=== PATIENT | female | born 1970 | race Caucasian/White ===

== ENCOUNTER 2018-09-20 06:15 | Inpatient (IN) ==
[~2018-09-20 06:15] MED LIST: Bacitracin 50,000 UNIT, Polymyxin B Sulfate 500,000 UNIT, Sodium Chloride IRRigation 1,... IR ONE
[2018-09-20] MEDS ORDERED: Clindamycin 900 MG/50 ML 900 MG/50 ML IV.SOLN IVPB ONE (06:31)
[2018-09-20] MEDS ORDERED: Albuterol 2.5 MG/3 ML NEBULIZER IH ONE (06:31)
[2018-09-20] MEDS ORDERED: Ringers Solution, Lactated 1,000 ML IVC SCH ×2 (06:45→07:15)
--- NOTE | 2018-09-20 06:46 | Anesthesia Evaluation PreOp ---
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 (PTSD, anxiety,) Other Medical History: Hepatic (hx liver disease unspecified), GERD, Other (fibromyalgia, hx hypo-K and hypo-Mg) Anesthesia History: No Prior Anesthetic Complications, Past Anesthesia (tonsils, tubal, appy, liver bx) Alcohol Use: rarely Drug use: none Medications and Allergies Ibuprofen [Motrin] 800 mg PO Q8HR #30 tablet 05/05/16 [Rx] Meloxicam [Mobic] 7.5 mg PO Q12H 08/08/18 [History] Multivitamin [Daily Multiple Vitamin] 1 each PO DAILY 08/08/18 [History] Allergy/AdvReac Type Severity Reaction Status Date / Time acetaminophen [From Vicodin] Allergy Nausea Verified 08/08/18 21:39 cephalexin [From Keflex] Allergy Swelling Verified 08/08/18 21:39 of Lip/Tongue/Throat codeine Allergy Nausea Verified 08/08/18 21:39 hydrocodone [From Vicodin] Allergy Nausea Verified 08/08/18 21:39 - Meds/Allergy Pre-op Review Medications Reviewed: Yes Allergies Reviewed: Yes Beta Blockers on Current Med List: No Anesthesia Results - Labs Selected Entries 09/20/18 06:34 Temperature 98.4 F Pulse Rate 70 Respiratory Rate 18 Blood Pressure 137/87 O2 Sat by Pulse Oximetry 96 Laboratory Tests 09/18/18 09/18/18 09:30 09:30 Hgb 13.6 Hct 41.7 Plt Count 148 Sodium 137 Potassium 3.2 L BUN 10 Creatinine 0.39 L - Imaging EKG: report reviewed (NS[facility]) Anesthesia Exam Selected Entries 09/20/18 06:34 Temperature 98.4 F Pulse Rate 70 Respiratory Rate 18 Blood Pressure 137/87 O2 Sat by Pulse Oximetry 96 Weight: 41kg BMI 18 NPO (# of Hours): 8 - HEENT Pupil (Motor): EOMI Mallampati: II Teeth: Normal Oral Opening: Greater than 3 - SNACK [employer] MIXER OPERATOR LOC: Oriented [employer]NACK [employer] MIXER OPERATOR Motor: Normal RUE, Normal LUE, Normal RLE, Normal LLE, Normal Face [employer] MIXER OPERATOR Sensory: Normal: RUE, LUE, RLE, LLE, Face - Cardiac Rhythm: Regular Murmur: None - Pulmonary Breath Sounds: bilateral Clear Respiratory Effort: Symmetrical Anesthesia Assess/Plan ASA Score: 2 Level of consciousness: Cooperative, Oriented Anesthetic Plan: General Monitoring Plan: Standard Monitors Recovery Plan: PACU (agrees to GA)
[2018-09-20] MEDS ORDERED: Gabapentin 100 MG CAPSULE PO ONE (06:58)
[2018-09-20] MEDS ORDERED: *HR* OxyCODONE ER (12 HR) 10 MG TABLET PO ONE (06:59)
[2018-09-20] MEDS ORDERED: *HR* OxyCODONE/APAP 5/325 TABLET PO PRN (07:02)
[2018-09-20] MEDS ORDERED: *HR* FentaNYL (PF) 100 MCG/2 ML VIAL ONE ×2 (07:19→11:02)
[2018-09-20] MEDS ORDERED: *HR* Rocuronium Bromide 50 MG/5 ML VIAL ONE (07:19)
[2018-09-20] MEDS ORDERED: Lidocaine -MPF 2% 2 ML VIAL ONE (07:19)
[2018-09-20] MEDS ORDERED: *HR* Midazolam HCl 2 MG/2 ML VIAL ONE (07:19)
[2018-09-20] MEDS ORDERED: Lidocaine -MPF 4% 5 ML AMPUL ONE (07:19)
[2018-09-20] MEDS ORDERED: *HR* Propofol 200 MG/20 ML VIAL IVP ONE (07:21)
[2018-09-20] MEDS ORDERED: *HR* Remifentanil 1 MG VIAL IVP ONE (07:39)
--- NOTE | 2018-09-20 08:02 | History & Physical Report ---
Date of Encounter: 09/20/18 Time of Encounter: 08:02 24 Hour HP Update - Instructions Instructions: If the History and Physical is less than 30 days old and was completed prior to A.M. admission and or procedure and has NOT been updated on calendar day of procedure please complete this update prior to performing procedure. - Update Patient reports changes in Medical Condition: No Changes in examination, assessment, or condition: No Changes in Medication: No Preop tests/diagnostics Reviewed: Yes Pre-Op MRSA Screen: Negative Surgery Remains Indicated: Yes Consent for Planned Operative Procedure(s) Verified: Yes - Pre-Operative Checklist Preoperative Checklist Indicated: No Prophylactic Antibiotic Ordered: Yes Home Medications Include Beta Esha: No Beta Esha Taken Today (Day of Surgery): No Beta Esha Taken Yesterday (Day Prior to Surgery): No Is VTE Prophylaxis Indicated?: Yes
[2018-09-20] MEDS ORDERED: *HR* PHENYLEPHRINE 1,000 MCG/10 ML SYRINGE IVP ONE (08:25)
--- NOTE | 2018-09-20 08:29 | Discharge Summary ---
Outpatient Proc Discharge Plan - Plan Additional Instructions: INCORRECT DOCUMENT FOR THIS PATIENT - SCRIPTS SHREDDED - ENTERED IN ERROR AFTER SURGERY General Expectations: Swelling and discomfort in the shoulder for up to a week after surgery is typical A post-operative appointment will be set up with your provider within the 1st week of your surgery. Stitches will be removed within one (1) week of your surgery. You may need help with your daily activities, so it is a good idea to have family and friends prepared to help you. Eat a regular diet. Although some people feel much better right away, many people notice they are not back to normal for 4 weeks or more. The shoulder is stiff and sore for several weeks. Rest after your surgery. You may feel dizzy, lightheaded or sleepy for 12 to 24 hours after your operation. This is perfectly normal. Move slowly, and be especially careful on stairs. On the following day you can do those activities that you feel able to do. Wound Care: Expect minimal bloody drainage on the surgical bandages. Keep bandages clean and dry. You may remove outer bandages after 24 hours. Keep Steri-strips over the incisions. Keep them as dry as possible, and pat dry after showering. If Steri-strips come off, cover incisions with band-aids and do not use antibiotic creams You may shower 24 hours after surgery. Do not scrub the incisions or submerge them under water for at least two weeks. Sling Use: Duration of sling use will vary depending on the procedure and surgery type. You may be in the sling for up to six (6) weeks. Until you see your provider at the follow-up appointment, wear the sling at all times except when changing clothes, showering, Physical Therapy, or if advised by your Physician. Feel free to adjust the sling at home to feel snug but not tight. You should be able to breathe freely. There will also be a strap over your shoulder you may ad just to keep your arm at a 90 degree angle. You do not want your hand hanging down towards the ground. This encourages swelling in the hand. Your sling will be re-adjusted at your first post-operative appointment. Icing is most important in the first 72 hours after surgery: Apply ice bags or use the Cryocuff device you will be given at the time of surgery. Never apply ice directly contact to your skin. You will be given a Cryocuff device at the time of surgery. Please be sure all the pieces are with you or in the package before leaving the hospital. Anesthesia - General and Regional General Anesthesia - It is not uncommon to have generalized aching and muscle soreness for 24 to 48 hours. A sore throat may also occur. Regional Interscalene Nerve Block - Your Anesthesiologist will discuss the utilization of this nerve block with you prior to surgery. This is performed to limit post-operative pain - you should experience little to no pain right after surgery. Nerve blocks can last 12 to 48 hours after the surgery. After the surgery, start to take your pain medication as prescribed, though not more than every four (4) hours, in anticipation of the nerve block wearing off. You may experience the inability to move your shoulder and hand, numbness, and swelling may feel different. If you experience severe or prolonged shortness of breath, please go to the emergency room. Pain Management After surgery: Do not wait until you are in a lot of pain before taking your prescribed pain medication. It takes 30-45 minutes for the medication to take effect. Pain tends to be worse at night, affecting sleep. Lying down may increase discomfort. Try sleeping in a recliner, or propped up with multiple pillows in bed - A pillow placed behind your elbow may help. Narcotic Medication Protocol: Strong oral narcotic pain medications are typically prescribed for the first few days after surgery. Use only as directed. Common side effects include nausea, dizziness, urinary retention, and constipation. If any of these are occurring to an uncomfortable level, decrease the amount of pain medication you are taking or stop taking it entirely. A stool softener may be helpful for constipation while taking pain medications. This is an uvnd-ais-euabynb product, such as Colace or Miralax. If you have an adverse reaction to the pain medication prescribed, please bring in your medicine bottle with you to your 1st appointment. Call our office at if you do not tolerate the medication well. Take your pain medication with food. Do not combine with alcoholic beverages. Do not operate machinery or a vehicle while taking pain medications. Other Medications Do not take Tylenol (Acetaminophen) in combination with pain medications that include these same substances. You may find the contents of the pain medication on the bottle of your prescription. You may take anti-inflammatory medication (Motrin [Ibuprofen], Aleve [Naproxen], Celebrex, Aspirin, etc) in conjunction with your pain medication if you can tolerate these medications. After the surgery, you may resume your normal medications that you took prior to surgery. WHAT YOU CAN EXPECT IN THE FIRST MONTH Physical Therapy - this will be addressed at your first post-operative appointment. The type of procedure you have determines when you will start Physical Therapy and is managed on a [id number] basis. Rotator cuff repairs, shoulder stabilizations, and clavicular procedures: Therapy starts approx. 6 weeks after surgery. Other procedures: Therapy starts immediately after surgery. You should call your insurance company and therapy location ahead of time to learn allotted number of visits, financial expenses, and out of pocket costs. We are happy to provide you with a list of [facility] locations. Driving - this will be addressed at your first post-operative appointment, however, in general: 1. You must be completely off your pain medication. 2. You must be able to perform the necessary functions comfortably and confidently. This may take 1 month or longer. Working - this will be addressed at your first appointment - Restrictions are job related and can vary from 2-10 weeks. No Repair during Surgery Sitting Desk Job - 1-2 Weeks Standing Job - 2-4 Weeks High Demand Job - 6-8 Weeks Repair during Surgery Sitting Desk Job - 2-3 Weeks Standing Job - 3-6 Weeks High Demand Job - 2-4 Months AFTER THE 1ST MONTH AT HOME Because each person heals differently, there are different recovery timelines. An average recovery period typically lasts about three (3) to six (6) months. You should not participate in contact sports or do heavy lifting until released by your physician. *Any questions or concerns regarding your surgery, you may contact our office at . Option #3 *Please allow for 24-48 hours to receive a return phone call* If the case of an emergency, please call 911 or go to the closest Emergency Department Prescriptions: Clindamycin [Cleocin] 150 mg PO Q6HR 2 Days #7 capsule OxyCODONE Immed Rel [Roxicodone 5 MG] 5 mg PO Q6HR PRN 5 Days #20 tablet PRN Reason: Severe Pain Docusate Sodium [Colace] 100 mg PO BID 5 Days #10 capsule Home Medications: Clindamycin [Cleocin] 150 mg PO Q6HR 2 Days #7 capsule 09/20/18 [Rx] Dexamethasone [Decadron] 4 mg PO BID 09/20/18 [History] Docusate Sodium [Colace] 100 mg PO BID 5 Days #10 capsule 09/20/18 [Rx] FLUoxetine HCl [PROzac] 20 mg PO DAILY 09/20/18 [History] Folic Acid 1 mg PO DAILY 09/20/18 [History] Magnesium Oxide [Magnesium] 400 mg PO TID 09/20/18 [History] Meloxicam [Mobic] 7.5 mg PO DAILY 09/20/18 [History] Metoclopramide HCl 5 mg PO HS 09/20/18 [History] Mirtazapine [Remeron] 30 mg PO HS 09/20/18 [History] Omeprazole [PriLOSEC] 20 mg PO DAILY 09/20/18 [History] OxyCODONE Immed Rel [Roxicodone 5 MG] 5 mg PO Q6HR PRN 5 Days #20 tablet 09/20/18 [Rx] Potassium Chloride [K-Tab ER] 20 meq PO TID 09/20/18 [History] Sennosides [Senna] 17.2 mg PO DAILY 09/20/18 [History]
[2018-09-20] MEDS ORDERED: Ondansetron 4 MG/2 ML VIAL ONE (08:44)
[2018-09-20] MEDS ORDERED: Dexamethasone 4 MG/ML VIAL ONE (08:44)
[2018-09-20] MEDS ORDERED: Celecoxib 200 MG CAPSULE PO ONE (09:00)
[2018-09-20] MEDS ORDERED: EPHEDrine 50 MG/ML VIAL ONE (09:09)
[2018-09-20] MEDS ORDERED: Neostigmine Methylsulfate 3 MG/3 ML SYRINGE ONE (09:33)
[2018-09-20] MEDS ORDERED: *HR* HYDROMORPHONE 2 MG/ML VIAL ONE (10:26)
[2018-09-20] MEDS ORDERED: Ketorolac 30 MG/ML VIAL ONE (10:35)
--- NOTE | 2018-09-20 10:55 | Orthopedic Operative Note ---
Date of procedure: 09/20/18 Pre-op diagnosis: Spondylolisthesis, lumbar stenosis, lumbar radiculopathy Post-op diagnosis: same Operation/Findings: Posterior lumbar interbody fusion L4-L5: The patient successfully underwent general endotracheal anesthesia. The patient was given antibiotics prior to the start of the procedure. Compression boots and stockings were used for deep vein thrombosis prophylaxis. A Corbett catheter was placed. Leads for neuro monitoring were placed on the upper and lower extremities. This included the cranium. The neuro monitoring personnel confirmed there were satisfactory readings prior to the start of the procedure. The patient was turned prone on the Berto table. The back was prepped and draped in the usual sterile fashion. An incision was was marked and centered over the involved levels in the mid line. The incision was deepened through the lumbar fascia. Bovie cautery and Alfonso elevators were used to reflect the paraspinal musculature at the lateral extent of the transverse processes of the involved L4 and L5 levels. Addis clamps were placed over the L4 and L5 spinous processes. An intraoperative lateral fluoroscgraph was obtained. A conversation was held between the surgeon and radiologist and both confirmed we had the correct operative levels. We then placed pedicle screws in standard fashion with the aid of fluoroscopy and anatomic landmarks. Briefly a starter awl was used. A gearshift was subsequently used to enter the remote pilot operator hole via a transpedicular route into the vertebral body. The remote pilot operator hole was tapped with an undersized instrument, and subsequently four 6.5 x 40 mm pedicle screws were placed shelton aterally at the indicated L4 and L5 levels. The screws were tested with the aid of the neurologic monitoring staff via pedicle screw stimulation. All reading suggested there was no significant cortical wall breech. The screws were also evaluated fluoro- graphically and appeared to be in satisfactory position. We then turned our attention to the decompression portion of the procedure. We removed the supraspinous and interspinous ligaments and subsequently the insertion of the ligamentum flavum on the undersurface of the proximal L4 lamina was dislodged with a curette. We then removed the ligamentum flavum as well as undercut the facets at this L4-L5 level to decompress the lateral recesses. We also performed a L4 laminectomy. After the decompression, which was over and above that which was required to place the interbody graft, the foramen and traversing roots at this L4-L5 level were found to be free and patent. We also took part of the medial facets in order to aid in the decompression. We then protected the neural elements including the thecal sac and traversing nerve root on the right with a dural retractor. We made an annulotomy into the L4-L5 disc space and then removed entire disc material using Pituitary instruments. We trialed various size grafts after the endplates were prepared for graft insertion. An 8 x 26 enter body graft fit well within the L4-L5 disc space. We obtained some bone from the right posterior superior iliac spine through us a separate incision and combined with this with the bone which we had saved from the laminectomy portion of the procedure. This autograft bone was first placed in the anterior portion of the L4-L5 disc space and additional bone was placed within the interbody graft spacer. We then placed the interbody graft spacer obliquely across the L4-L5 disc space towards the midline while protecting the neural elements with a root retractor. When the graft was found to be in satisfactory position the registered representative was removed. We then copiously irrigated the wound. We then decorticated the L4 and L5 transverse processes as well as the facet joints of the involved L4 and L5 levels to aid in the posterolateral fusion. We placed autograft bone in the lateral gutters over these regions. We then placed rods within the screw heads of the involved L4 and L5 levels and first locked the distal screws and then subsequently locked the proximal screws so as to improve and reduce the spondylolisthesis previously seen. We then closed the wound in layers with 1 Vicryl for the fascia, 2-0 Vicryl. Subcutaneous tissue, and Dermabond was used for skin closure. Sterile dressings were placed over the wound. The patient was turned supine on a hospital bed and extubated. All sponge instruments and needle counts were correct at the end of the procedure. The patient tolerated the procedure well without complications. Anesthesia: GETA Surgeon: Harry Matamoros Jr Was there an social and human services assistant present: No Estimated blood loss (cc): 150 Specimen: None Condition: stable Disposition: PACU
[2018-09-20] MEDS: *HR* FentaNYL (PF) 100 MCG/2 ML VIAL IVP PRN ×4 (11:05→11:20)
--- NOTE | 2018-09-20 11:41 | Anesthesia Evaluation Post Op ---
Date of Encounter: 09/20/18 Time of Encounter: 11:40 - Vital Signs Vital Signs: Selected Entries 09/20/18 11:35 Temperature 98.6 F Pulse Rate 92 Respiratory Rate 16 Blood Pressure 127/87 O2 Sat by Pulse Oximetry 99 - Lungs Lungs: Clear Ascult./Percussion - Airway Airway: Non-obstructed - Cardiovascular Regular Rate - Mental Status Mental Status: Alert & Oriented, Answers Appropriately - Pain Pain Scale: 3 Pain Scale used: Numeric (1 - 10) - Nausea Vomiting Nausea Vomiting: Not Present - Hydration Hydration: Ice chips, Corbett catheter - Discharge PostOp Status: Transfer Patient to floor
[2018-09-20] MEDS ORDERED: Naloxone 0.4 MG/ML INJ IVP PRN (12:02)
[2018-09-20] MEDS ORDERED: Acetaminophen 325 MG TABLET PO PRN (12:02)
[2018-09-20] MEDS: traMADol 50 MG TABLET PO PRN (14:00)
[2018-09-20] MEDS: Ondansetron 4 MG/2 ML VIAL IVP PRN (14:00)
[2018-09-20] MEDS: Ringers Solution, Lactated 1,000 ML IVC SCH (15:12)
[2018-09-20] MEDS: *HR* OxyCODONE Immed Rel 5 MG TABLET PO PRN ×2 (16:20→20:41)
[2018-09-20] MEDS: Magnesium Oxide 400 MG TABLET PO SCH ×2 (16:20→20:40)
[2018-09-20] MEDS: Clindamycin 600 MG/50 ML 600 MG/50 ML IV.SOLN IVPB SCH (16:20)
[2018-09-20] MEDS: *HR* Promethazine 25 MG/ML VIAL IVP PRN (18:36)
[2018-09-20] MEDS: Mirtazapine 15 MG TABLET PO SCH (20:40)
[2018-09-21] MEDS: Clindamycin 600 MG/50 ML 600 MG/50 ML IV.SOLN IVPB SCH (00:07)
[2018-09-21] MEDS: Ringers Solution, Lactated 1,000 ML IVC SCH ×2 (02:56→14:38)
[2018-09-21] MEDS: traMADol 50 MG TABLET PO PRN (06:40)
--- NOTE | 2018-09-21 08:57 | Orthopedics Progress Note ---
Date of Encounter: 09/21/18 Time of Encounter: 13:20 - Assessment and Plan (1) Spondylolisthesis Current Visit: Yes Status: Chronic Qualifiers: Spinal region: unspecified Qualified Code(s): M43.10 - Spondylolisthesis, site unspecified (2) Lumbar stenosis Current Visit: Yes Status: Chronic Qualifiers: Neurogenic claudication status: unspecified Qualified Code(s): M48.061 - Spinal stenosis, lumbar region without neurogenic claudication (3) Lumbar radiculopathy Current Visit: Yes Status: Chronic (4) Status post lumbar spinal fusion Current Visit: Yes Status: Acute Subjective Principal diagnosis: status post lumbar fusion Interval history: POD#1 Date of procedure: 09/20/18 Pre-op diagnosis: Spondylolisthesis, lumbar stenosis, lumbar radiculopathy Post-op diagnosis: same Operation/Findings: Posterior lumbar interbody fusion L4-L5 The patient complains of pain in the low back. She states her right leg does not feel any improvement as of yet and now her left thigh has a strange "numb" sensation. Vital signs reviewed. Dressing is clean dry and intact with appx dime sized amount of old appearing drainage to middle of dressing. Patient is tender about the low back. Neurovascularly intact with regard to bilateral lower extremities. Fires all upper and lower extremity motor groups. Assessment :stable. Plan mobilize ,continue analgesics, discharge planning Medication regimen rearranged to attempt to better control patient's pain Labwork for hypotension and for medication selection choice going to get CMP for evaluation liver and renal function Therapy recommending inpt rehab - social work consulted to work on placement Xrays POD#[address] Matamoros Objective Vital signs: Vital Signs Temp Pulse Resp BP Pulse Ox 09/21/18 08:02 98.6 F 78 16 89/51 98 09/21/18 06:36 98.1 F 73 15 92/54 98 09/21/18 03:53 98.7 F 73 18 91/54 99 09/20/18 22:51 98.8 F 84 17 102/66 97 09/20/18 20:45 98 09/20/18 18:24 97.0 F L 76 17 112/69 98 09/20/18 15:45 98.0 F 87 14 134/88 99 09/20/18 14:07 97.9 F 84 12 117/74 99 09/20/18 13:24 97.7 F 87 14 129/80 97 09/20/18 12:18 98.1 F 96 16 135/78 96 09/20/18 11:45 97.9 F 102 14 150/76 96 09/20/18 11:35 98.6 F 92 16 127/87 99 09/20/18 11:25 98.6 F 92 16 132/98 99 09/20/18 11:15 98.6 F 101 16 126/94 99 09/20/18 11:05 99.0 F 101 18 146/93 97 Intake and Output 09/20/18 09/21/18 09/21/18 23:59 07:59 15:59 Intake Total 150 / 150 1050 / 1050 Output Total 1850 / 1850 650 / 650 Balance -1700 / -1700 400 / 400 Intake: IV Fluids 50 / 50 1050 / 1050 Lactated Ringers 1,000 ML @ 100 1000 / 1000 mls/hr IVC .Q10H [facility] Rx#: [id number] Cleocin Premix 600 MG/50 ML 600 50 / 50 50 / 50 mg In 50 ml @ 50 mls/hr IVPB Q8HR [facility] Rx#:[id number] Oral 100 / 100 Output: Urine 1000 / 1000 Emesis 300 / 300 Catheter 550 / 550 650 / 650 Other: Meal Dinner Percent of Meal Consumed 10% Weight 40.1 kg Patient Weight 09/21/18 23:59 Weight 40.1 kg Consult Discharge Plan - Plan Additional Instructions: INCORRECT DOCUMENT FOR THIS PATIENT - SCRIPTS SHREDDED - ENTERED IN ERROR AFTER SURGERY General Expectations: Swelling and discomfort in the shoulder for up to a week after surgery is typical A post-operative appointment will be set up with your provider within the 1st week of your surgery. Stitches will be removed within one (1) week of your surgery. You may need help with your daily activities, so it is a good idea to have family and friends prepared to help you. Eat a regular diet. Although some people feel much better right away, many people notice they are not back to normal for 4 weeks or more. The shoulder is stiff and sore for several weeks. Rest after your surgery. You may feel dizzy, lightheaded or sleepy for 12 to 24 hours after your operation. This is perfectly normal. Move slowly, and be especially careful on stairs. On the following day you can do those activities that you feel able to do. Wound Care: Expect minimal bloody drainage on the surgical bandages. Keep bandages clean and dry. You may remove outer bandages after 24 hours. Keep Steri-strips over the incisions. Keep them as dry as possible, and pat dry after showering. If Steri-strips come off, cover incisions with band-aids and do not use antibiotic creams You may shower 24 hours after surgery. Do not scrub the incisions or submerge them under water for at least two weeks. Sling Use: Duration of sling use will vary depending on the procedure and surgery type. You may be in the sling for up to six (6) weeks. Until you see your provider at the follow-up appointment, wear the sling at all times except when changing clothes, showering, Physical Therapy, or if advised by your Physician. Feel free to adjust the sling at home to feel snug but not tight. You should be able to breathe freely. There will also be a strap over your shoulder you may adjust to keep your arm at a 90 degree angle. You do not want your hand hanging down towards the ground. This encourages swelling in the hand. Your sling will be re-adjusted at your first post-operative appointment. Icing is most important in the first 72 hours after surgery: Apply ice bags or use the Cryocuff device you will be given at the time of surgery. Never apply ice directly contact to your skin. You will be given a Cryocuff device at the time of surgery. Please be sure all the pieces are with you or in the package before leaving the hospital. Anesthesia - General and Regional General Anesthesia - It is not uncommon to have generalized aching and muscle soreness for 24 to 48 hours. A sore throat may also occur. Regional Interscalene Nerve Block - Your Anesthesiologist will discuss the utilization of this nerve block with you prior to surgery. This is performed to limit post-operative pain - you should experience little to no pain right after surgery. Nerve blocks can last 12 to 48 hours after the surgery. After the surgery, start to take your pain medication as prescribed, though not more than every four (4) hours, in anticipation of the nerve block wearing off. You may experience the inability to move your shoulder and hand, numbness, and swelling may feel different. If you experience severe or prolonged shortness of breath, please go to the emergency room. Pain Management After surgery: Do not wait until you are in a lot of pain before taking your prescribed pain medication. It takes 30-45 minutes for the medication to take effect. Pain tends to be worse at night, affecting sleep. Lying down may increase discomfort. Try sleeping in a recliner, or propped up with multiple pillows in bed - A pillow placed behind your elbow may help. Narcotic Medication Protocol: Strong oral narcotic pain medications are typically prescribed for the first few days after surgery. Use only as directed. Common side effects include nausea, dizziness, urinary retention, and constipation. If any of these are occurring to an uncomfortable level, decrease the amount of pain medication you are taking or stop taking it entirely. A stool softener may be helpful for constipation while taking pain medications. This is an [id number]-yhsfdqv product, such as Colace or Miralax. If you have an adverse reaction to the pain medication prescribed, please bring in your medicine bottle with you to your 1st appointment. Call our office at if you do not tolerate the medication well. Take your pain medication with food. Do not combine with alcoholic beverages. Do not operate machinery or a vehicle while taking pain medications. Other Medications Do not take Tylenol (Acetaminophen) in combination with pain medications that include these same substances. You may find the contents of the pain medication on the bottle of your prescription. You may take anti-inflammatory medication (Motrin [Ibuprofen], Aleve [Naproxen], Celebrex, Aspirin, etc) in conjunction with your pain medication if you can tolerate these medications. After the surgery, you may resume your normal medications that you took prior to surgery. WHAT YOU CAN EXPECT IN THE FIRST MONTH Physical Therapy - this will be addressed at your first post-operative appointment. The type of procedure you have determines when you will start Physical Therapy and is managed on a pgrs-qo-fakj basis. Rotator cuff repairs, shoulder stabilizations, and clavicular procedures: Therapy starts approx. 6 weeks after surgery. Other procedures: Therapy starts immediately after surgery. You should call your insurance company and therapy location ahead of time to learn allotted number of visits, financial expenses, and out of pocket costs. We are happy to provide you with a list of [place] locations. Driving - this will be addressed at your first post-operative appointment, however, in general: 1. You must be completely off your pain medication. 2. You must be able to perform the necessary functions comfortably and confidently. This may take 1 month or longer. Working - this will be addressed at your first appointment - Restrictions are job related and can vary from 2-10 weeks. No Repair during Surgery Sitting Desk Job - 1-2 Weeks Standing Job - 2-4 Weeks High Demand Job - 6-8 Weeks Repair during Surgery Sitting Desk Job - 2-3 Weeks Standing Job - 3-6 Weeks High Demand Job - 2-4 Months AFTER THE 1ST MONTH AT HOME Because each person heals differently, there are different recovery timelines. An average recovery period typically lasts about three (3) to six (6) months. You should not participate in contact sports or do heavy lifting until released by your physician. *Any questions or concerns regarding your surgery, you may contact our office at . Option #3 *Please allow for 24-48 hours to receive a return phone call* If the case of an emergency, please call 911 or go to the closest Emergency Department Referrals: Juan Calixto DO [Primary Care Provider] -
[2018-09-21] MEDS: Folic Acid 1 MG TABLET PO SCH (09:16)
[2018-09-21] MEDS: Ondansetron 4 MG/2 ML VIAL IVP PRN (09:16)
[2018-09-21] MEDS: FLUoxetine 20 MG CAPSULE PO SCH (09:17)
[2018-09-21] MEDS: Sennosides 8.6 MG TABLET PO SCH (09:17)
[2018-09-21] MEDS: Magnesium Oxide 400 MG TABLET PO SCH ×3 (09:17→20:57)
[2018-09-21] MEDS ORDERED: traMADol 50 MG TABLET PO PRN (12:46)
[2018-09-21 17:13] LABS: Basophils % 0.4 %; Hematocrit 24.7 % (35.3-44.9); Immature Granulocytes % 0.4 % (0-4); Lymphocytes # 1.3 K/mcL (0.6-4.6); Mean Corpuscular HGB Conc 33.2 g/dL (31.6-35.5); Mean Corpuscular Hemoglobin 33.3 pg (28.0-33.3); Mean Corpuscular Volume 100.4 fL (83.0-100.0); Mean Platelet Volume 11.3 fL (9.4-12.4); Monocytes # 0.5 K/mcL (0.0-1.3); Monocytes % 7.8 %; Platelet Count 104 K/mcL (140-400); Red Blood Count 2.46 M/mcL (3.82-4.97); Segmented Neutrophils % 72.4 %
[2018-09-21 17:30] LABS: Alanine Aminotransferase 22 Units/L (7-52); Albumin 3.2 g/dL (3.5-5.7); Albumin/Globulin Ratio 1.3 (1.1-2.2); Alkaline Phosphatase 91 Units/L (34-104); Aspartate Amino Transferase 33 Units/L (13-39); BUN/Creatinine Ratio 20 (6-26); Bilirubin,Total 0.7 mg/dL (0.3-1.0); Blood Urea Nitrogen 8 mg/dL (6-20); Calcium 7.7 mg/dL (8.6-10.3); Carbon Dioxide 25 mEq/L (23-29); Chloride 102 mEq/L (98-107); Globulin 2.5 g/dL (2.4-3.5); Glucose 161 mg/dL (70-105); Osmolality,Calculated 284 (280-300); Potassium 3.2 mEq/L (3.5-5.1); Sodium 136 mEq/L (136-145); Total Protein 5.7 g/dL (6.4-8.9); eGFR For Non-African Americans > 60 (> 60)
[2018-09-21 17:32] LABS: Hemoglobin 8.2 g/dL (11.5-15.4)
[2018-09-21] MEDS: diazePAM 5 MG TABLET PO PRN (19:39)
[2018-09-21] MEDS: Mirtazapine 15 MG TABLET PO SCH (20:56)
[2018-09-21] MEDS: *HR* OxyCODONE Immed Rel 5 MG TABLET PO PRN (20:57)
[2018-09-22] MEDS: *HR* OxyCODONE Immed Rel 5 MG TABLET PO PRN ×5 (03:23→23:15)
[2018-09-22] MEDS: Ringers Solution, Lactated 1,000 ML IVC SCH ×2 (03:32→19:31)
[2018-09-22] MEDS: Sennosides 8.6 MG TABLET PO SCH (08:01)
[2018-09-22] MEDS: FLUoxetine 20 MG CAPSULE PO SCH (08:01)
[2018-09-22] MEDS: Magnesium Oxide 400 MG TABLET PO SCH ×3 (08:01→20:18)
[2018-09-22] MEDS: Folic Acid 1 MG TABLET PO SCH (08:01)
--- NOTE | 2018-09-22 08:03 | Orthopedics Progress Note ---
Date of Encounter: 09/22/18 Time of Encounter: 08:30 - Assessment and Plan (1) Spondylolisthesis Current Visit: Yes Status: Chronic Qualifiers: Spinal region: unspecified Qualified Code(s): M43.10 - Spondylolisthesis, site unspecified (2) Lumbar stenosis Current Visit: Yes Status: Chronic Qualifiers: Neurogenic claudication status: unspecified Qualified Code(s): M48.061 - Spinal stenosis, lumbar region without neurogenic claudication (3) Lumbar radiculopathy Current Visit: Yes Status: Chronic (4) Status post lumbar spinal fusion Current Visit: Yes Status: Acute (5) Acute blood loss anemia Current Visit: Yes Status: Acute Subjective Principal diagnosis: status post lumbar fusion Interval history: POD#2 Date of procedure: 09/20/18 Pre-op diagnosis: Spondylolisthesis, lumbar stenosis, lumbar radiculopathy Post-op diagnosis: same Operation/Findings: Posterior lumbar interbody fusion L4-L5 The patient complains of pain in the low back. She states her right leg does not feel any improvement as of yet and now her left thigh has a strange ongoin "numb" sensation. Denies improvement today though admits the Valium is helping. Vital signs reviewed. Hypotension from yesterday resolving. HGb/Hct low and patient now asymptomatic. Will continue to monitor with rechecks. Patient alert and oriented Neurovascularly intact with regard to bilateral lower extremities. Fires all upper and lower extremity motor groups. Assessment :stable. Plan mobilize ,continue analgesics, discharge planning Medication regimen rearranged to attempt to better control patient's pain Labwork for hypotension - revealed anemia - recheck today. Patient no longer hypotensive Therapy recommending inpt rehab - social work consulted to work on placement Xrays POD#[address] Matamoros Objective Vital signs: Vital Signs Temp Pulse Resp BP Pulse Ox 09/22/18 06:42 97.9 F 96 15 137/79 97 09/22/18 03:10 97.9 F 68 16 107/73 98 09/21/18 23:22 98.2 F 79 16 95/60 95 09/21/18 19:47 99.0 F 82 16 97/61 98 09/21/18 15:03 98.4 F 82 16 97 09/21/18 14:38 103/67 09/21/18 12:22 98.7 F 76 16 99/62 99 09/21/18 12:04 98.4 F 72 16 99/61 99 09/21/18 09:34 98.6 F 76 17 93/57 99 Intake and Output 09/21/18 09/22/18 09/22/18 23:59 07:59 15:59 Intake Total 200 / 200 1200 / 1200 Output Total 500 / 500 Balance 200 / 200 700 / 700 Intake: IV Fluids 1000 / 1000 Lactated Ringers 1,000 ML @ 100 1000 / 1000 mls/hr IVC .Q10H [facility] Rx#: [id number] Oral 200 / 200 200 / 200 Output: Urine 500 / 500 Other: # Voids 1 - Labs CBC & BMP: 09/22/18 08:28 09/22/18 08:28 Labs: Abnormal lab results RBC 2.46 M/mcL (3.82-4.97) L 09/21/18 16:59 Hgb 8.2 g/dL (11.5-15.4) L D 09/21/18 16:59 Hct 24.7 % (35.3-44.9) L 09/21/18 16:59 MCV 100.4 fL (83.0-100.0) H 09/21/18 16:59 RDW 16.0 % (11.5-14.5) H 09/21/18 16:59 Plt Count 104 K/mcL (140-400) L 09/21/18 16:59 Potassium 3.2 mEq/L (3.5-5.1) L 09/21/18 16:59 Creatinine 0.41 mg/dL (0.60-1.20) L 09/21/18 16:59 Glucose 161 mg/dL (70-105) H 09/21/18 16:59 Calcium 7.7 mg/dL (8.6-10.3) L 09/21/18 16:59 Serum Total Protein 5.7 g/dL (6.4-8.9) L 09/21/18 16:59 Albumin 3.2 g/dL (3.5-5.7) L 09/21/18 16:59 Consult Discharge Plan - Plan Additional Instructions: INCORRECT DOCUMENT FOR THIS PATIENT - SCRIPTS SHREDDED - ENTERED IN ERROR AFTER SURGERY General Expectations: Swelling and discomfort in the shoulder for up to a week after surgery is typical A post-operative appointment will be set up with your provider within the 1st week of your surgery. Stitches will be removed within one (1) week of your surgery. You may need help with your daily activities, so it is a good idea to have family and friends prepared to help you. Eat a regular diet. Although some people feel much better right away, many people notice they are not back to normal for 4 weeks or more. The shoulder is stiff and sore for several weeks. Rest after your surgery. You may feel dizzy, lightheaded or sleepy for 12 to 24 hours after your operation. This is perfectly normal. Move slowly, and be peri ecially careful on stairs. On the following day you can do those activities that you feel able to do. Wound Care: Expect minimal bloody drainage on the surgical bandages. Keep bandages clean and dry. You may remove outer bandages after 24 hours. Keep Steri-strips over the incisions. Keep them as dry as possible, and pat dry after showering. If Steri-strips come off, cover incisions with band-aids and do not use antibiotic creams You may shower 24 hours after surgery. Do not scrub the incisions or submerge them under water for at least two weeks. Sling Use: Duration of sling use will vary depending on the procedure and surgery type. You may be in the sling for up to six (6) weeks. Until you see your provider at the follow-up appointment, wear the sling at all times except when changing clothes, showering, Physical Therapy, or if advised by your Physician. Feel free to adjust the sling at home to feel snug but not tight. You should be able to breathe freely. There will also be a strap over your shoulder you may adjust to keep your arm at a 90 degree angle. You do not want your hand hanging down towards the ground. This encourages swelling in the hand. Your sling will be re-adjusted at your first post-operative appointment. Icing is most important in the first 72 hours after surgery: Apply ice bags or use the Cryocuff device you will be given at the time of surgery. Never apply ice directly contact to your skin. You will be given a Cryocuff device at the time of surgery. Please be sure all the pieces are with you or in the package before leaving the hospital. Anesthesia - General and Regional General Anesthesia - It is not uncommon to have generalized aching and muscle soreness for 24 to 48 hours. A sore throat may also occur. Regional Interscalene Nerve Block - Your Anesthesiologist will discuss the utilization of this nerve block with you prior to surgery. This is performed to limit post-operative pain - you should experience little to no pain right after surgery. Nerve blocks can last 12 to 48 hours after the surgery. After the surgery, start to take your pain medication as prescribed, though not more than every four (4) hours, in anticipation of the nerve block wearing off. You may experience the inability to move your shoulder and hand, numbness, and swelling may feel different. If you experience severe or prolonged shortness of breath, please go to the emergency room. Pain Management After surgery: Do not wait until you are in a lot of pain before taking your prescribed pain medication. It takes 30-45 minutes for the medication to take effect. Pain tends to be worse at night, affecting sleep. Lying down may increase discomfort. Try sleeping in a recliner, or propped up with multiple pillows in bed - A pillow placed behind your elbow may help. Narcotic Medication Protocol: Strong oral narcotic pain medications are typically prescribed for the first few days after surgery. Use only as directed. Common side effects include nausea, dizziness, urinary retention, and constipation. If any of these are occurring to an uncomfortable level, decrease the amount of pain medication you are taking or stop taking it entirely. A stool softener may be helpful for constipation while taking pain medications. This is an ysct-cfr-osjwtkw product, such as Colace or Miralax. If you have an adverse reaction to the pain medication prescribed, please bring in your medicine bottle with you to your 1st appointment. Call our office at if you do not tolerate the medication well. Take your pain medication with food. Do not combine with alcoholic beverages. Do not operate machinery or a vehicle while taking pain medications. Other Medications Do not take Tylenol (Acetaminophen) in combination with pain medications that include these same substances. You may find the contents of the pain medication on the bottle of your prescription. You may take anti-inflammatory medication (Motrin [Ibuprofen], Aleve [Naproxen], Celebrex, Aspirin, etc) in conjunction with your pain medication if you can tolerate these medications. After the surgery, you may resume your normal medications that you took prior to surgery. WHAT YOU CAN EXPECT IN THE FIRST MONTH Physical Therapy - this will be addressed at your first post-operative appointment. The type of procedure you have determines when you will start Physical Therapy and is managed on a tbcf-jw-[id number] basis. Rotator cuff repairs, shoulder stabilizations, and clavicular procedures: Therapy starts approx. 6 weeks after surgery. Other procedures: Therapy starts immediately after surgery. You should call your insurance company and therapy location ahead of time to learn allotted number of visits, financial expenses, and out of pocket costs. We are happy to provide you with a list of [place] locations. Driving - this will be addressed at your first post-operative appointment, however, in general: 1. You must be completely off your pain medication. 2. You must be able to perform the necessary functions comfortably and confidently. This may take 1 month or longer. Working - this will be addressed at your first appointment - Restrictions are job related and can vary from 2-10 weeks. No Repair during Surgery Sitting Desk Job - 1-2 Weeks Standing Job - 2-4 Weeks High Demand Job - 6-8 Weeks Repair during Surgery Sitting Desk Job - 2-3 Weeks Standing Job - 3-6 Weeks [employer] Job - 2-4 Months AFTER THE 1ST MONTH AT HOME Because each person heals differently, there are different recovery timelines. An average recovery period typically lasts about three (3) to six (6) months. You should not participate in contact sports or do heavy lifting until released by your physician. *Any questions or concerns regarding your surgery, you may contact our office at . Option #3 *Please allow for 24-48 hours to receive a return phone call* If the case of an emergency, please call 911 or go to the closest Emergency Department Referrals: Juan Calixto DO [Primary Care Provider] - Prescriptions: OxyCODONE Immed Rel [Roxicodone 5 MG] 5 mg PO Q6HR PRN 5 Days #20 tablet PRN Reason: Severe Pain diazePAM [Valium] 5 mg PO TID PRN 7 Days #21 tablet PRN Reason: Spasms Docusate Sodium [Colace] 100 mg PO BID 5 Days #10 capsule
--- NOTE | 2018-09-22 08:06 | Discharge Summary ---
Orders not resulted at time of discharge: Pending orders 09/20/18 XR fluoroscopy <1 hr [XR] Routine 09/22/18 08:02 BMP [Basic Metabolic Panel] Stat Complete Blood Count [HEME] Stat 09/23/18 00:01 XR lumbar spine 2-3V [XR] Routine Date of Encounter: 09/27/18 Time of Encounter: 08:03 - Discharge Diagnosis (1) Spondylolisthesis Priority: Primary Status: Chronic Qualifiers: Spinal region: unspecified Qualified Code(s): M43.10 - Spondylolisthesis, site unspecified (2) Lumbar stenosis Priority: Primary Status: Chronic Qualifiers: Neurogenic claudication status: unspecified Qualified Code(s): M48.061 - Spinal stenosis, lumbar region without neurogenic claudication (3) Lumbar radiculopathy Priority: Primary Status: Chronic (4) Status post lumbar spinal fusion Priority: Primary Status: Acute (5) Acute blood loss anemia Priority: Primary Status: Acute - Hospital Course Hospital course: Ms. Holliday is a 48 year old female Date of procedure: 09/20/18 Pre-op diagnosis: Spondylolisthesis, lumbar stenosis, lumbar radiculopathy Post-op diagnosis: same Operation/Findings: Posterior lumbar interbody fusion L4-L5 The patient had an uneventful postoperative course. Progressed from intravenous analgesic needs to oral analgesic needs only. Remained neurovascularly intact and mobilized satisfactorily. All intraoperative and/or postoperative radiographic studies were satisfactory. Patient is discharged with plan for rehabilitation and follow-up in 2 weeks post discharge on analgesic medication and patient's home medications. *Patient discharged home with home health and outpatient follow up on 09/23/18 - Time Spent with Patient Total time spent providing and/or coordinating discharge services: - Discharge Medications Prescriptions: New diazePAM [Valium] 5 mg PO TID PRN 7 Days #21 tablet PRN Reason: Spasms Continued Potassium Chloride [K-Tab ER] 20 meq PO TID FLUoxetine HCl [Prozac] 20 mg PO DAILY Omeprazole [PriLOSEC] 20 mg PO DAILY Mirtazapine [Remeron] 30 mg PO HS Metoclopramide HCl 5 mg PO HS Meloxicam [Mobic] 7.5 mg PO DAILY Magnesium Oxide [Magnesium] 400 mg PO TID Folic Acid 1 mg PO DAILY Dexamethasone [Decadron] 4 mg PO BID Sennosides [Senna] 17.2 mg PO DAILY Zolpidem [Ambien] 10 mg PO HS PRN PRN Reason: Sleep OLANZapine [Zyprexa] 2.5 mg PO HS Home Medications: Dexamethasone [Decadron] 4 mg PO BID 09/20/18 [History] FLUoxetine HCl [Prozac] 20 mg PO DAILY 09/20/18 [History] Folic Acid 1 mg PO DAILY 09/20/18 [History] Magnesium Oxide [Magnesium] 400 mg PO TID 09/20/18 [History] Meloxicam [Mobic] 7.5 mg PO DAILY 09/20/18 [History] Metoclopramide HCl 5 mg PO HS 09/20/18 [History] Mirtazapine [Remeron] 30 mg PO HS 09/20/18 [History] OLANZapine [Zyprexa] 2.5 mg PO HS 09/20/18 [History] Omeprazole [PriLOSEC] 20 mg PO DAILY 09/20/18 [History] Potassium Chloride [K-Tab ER] 20 meq PO TID 09/20/18 [History] Sennosides [Senna] 17.2 mg PO DAILY 09/20/18 [History] Zolpidem [Ambien] 10 mg PO HS PRN 09/20/18 [History] diazePAM [Valium] 5 mg PO TID PRN 7 Days #21 tablet 09/22/18 [Rx] Allergies/Adverse Reactions: Allergy/AdvReac Type Severity Reaction Status Date / Time cephalexin [From Keflex] Allergy Swelling Verified 09/20/18 07:16 of Lip/Tongue/Throat codeine AdvReac Nausea Verified 09/20/18 07:16 hydrocodone [From Vicodin] AdvReac Nausea Verified 09/20/18 07:16 Date of admission: 09/20/18 12:11 Primary care physician: Juan Calixto DO Consults: 09/20/18 12:02 Consult to Occupational Therapy [CONS] Routine Comment: Evaluate, develop and implement POC Reason for Consult: Postoperative rehabilitation Does patient have active BEDREST order?: No Is patient medically & hemodynamically stable?: Yes Patient assessed for mobility or mobilized this visit?: No Consult to Physical Therapy [CONS] Routine Comment: Evaluate, develop and implement POC Reason for Consult: Postoperative rehabilitation Does patient have active BEDREST order?: No Is patient medically & hemodynamically stable?: Yes Patient assessed for mobility or mobilized this visit?: No Consult to Spine Navigator [CONS] [CONS] Routine 09/20/18 14:17 Consult to Nutrition [CONS] Routine Comment: Consulting Provider: NUTRITION Reason for Dietary Consult: MST Score 09/21/18 16:23 Consult to Cupola Tapper Helper [CONS] Routine Reason for SW Consult: rehab placement Discharging clinician: Harry Matamoros Jr Anticipated date of discharge: 09/23/18 - VTE Documentation of Mechanical Device: Graduated compression elastic hosiery Labs on day of discharge: Labs from last 24 hours 09/21/18 09/21/18 16:59 16:59 WBC 6.9 RBC 2.46 L Hgb 8.2 L D Hct 24.7 L MCV 100.4 H MCH 33.3 MCHC 33.2 RDW 16.0 H Plt Count 104 L MPV 11.3 Immature Gran % 0.4 Seg Neutrophils % 72.4 Lymphocytes % 19.0 Monocytes % 7.8 Eosinophils % 0.0 Basophils % 0.4 Neutrophils # 5.0 Lymphocytes # 1.3 Monocytes # 0.5 Eosinophils # 0.0 Basophils # 0.0 Sodium 136 Potassium 3.2 L Chloride 102 Carbon Dioxide 25 BUN 8 Creatinine 0.41 L Est GFR ( Amer) > 60 Est GFR (Non-Af Amer) > 60 BUN/Creatinine Ratio 20 Glucose 161 H Calculated Osmolality 284 Calcium 7.7 L Total Bilirubin 0.7 AST 33 ALT 22 Alkaline Phosphatase 91 Serum Total Protein 5.7 L Albumin 3.2 L Globulin 2.5 Albumin/Globulin Ratio 1.3 - Impressions ITS Impressions Lumbar Spine X-Ray 09/20/18 00:00 IMPRESSION: Pedicle screw ally fusion with intervertebral disc spacer at L4-5. D/ / 09/20/2018 13:12:26 Hilda Juares MD / earpilar Interpreting Provider: Hilda Juares MD - Patient Status Disposition: Home Health Service Condition: Fair Functional capacity at discharge: uses cane/walker Overall status at discharge: patient is progressing back to baseline - Discharge Instructions Follow Up With: Juan Calixto DO [Primary Care Provider] - Additional Instructions: INCORRECT DOCUMENT FOR THIS PATIENT - SCRIPTS SHREDDED - ENTERED IN ERROR AFTER SURGERY General Expectations: Swelling and discomfort in the shoulder for up to a week after surgery is typical A post-operative appointment will be set up with your provider within the 1st week of your surgery. Stitches will be removed within one (1) week of your surgery. You may need help with your daily activities, so it is a good idea to have family and friends prepared to help you. Eat a regular diet. Although some people feel much better right away, many people notice they are not back to normal for 4 weeks or more. The shoulder is stiff and sore for several weeks. Rest after your surgery. You may feel dizzy, lightheaded or sleepy for 12 to 24 hours after your operation. This is perfectly normal. Move slowly, and be especially careful on stairs. On the following day you can do those activities that you feel able to do. Wound Care: Expect minimal bloody drainage on the surgical bandages. Keep bandages clean and dry. You may remove outer bandages after 24 hours. Keep Steri-strips over the incisions. Keep them as dry as possible, and pat dry after showering. If Steri-strips come off, cover incisions with band-aids and do not use antibiotic creams You may shower 24 hours after surgery. Do not scrub the incisions or submerge them under water for at least two weeks. Sling Use: Duration of sling use will vary depending on the procedure and surgery type. You may be in the sling for up to six (6) weeks. Until you see your provider at the follow-up appointment, wear the sling at all times except when changing clothes, showering, Physical Therapy, or if advised by your Physician. Feel free to adjust the sling at home to feel snug but not tight. You should be able to breathe freely. There will also be a strap over your shoulder you may adjust to keep your arm at a 90 degree angle. You do not want your hand hanging down towards the ground. This encourages swelling in the hand. Your sling will be re-adjusted at your first post-operative appointment. Icing is most important in the first 72 hours after surgery: Apply ice bags or use the Cryocuff device you will be given at the time of surgery. Never apply ice directly contact to your skin. You will be given a Cryocuff device at the time of surgery. Please be sure all the pieces are with you or in the package before leaving the hospital. Anesthesia - General and Regional General Anesthesia - It is not uncommon to have generalized aching and muscle soreness for 24 to 48 hours. A sore throat may also occur. Regional Interscalene Nerve Block - Your Anesthesiologist will discuss the utilization of this nerve block with you prior to surgery. This is performed to limit post-operative pain - you should experience little to no pain right after surgery. Nerve blocks can last 12 to 48 hours after the surgery. After the surgery, start to take your pain medication as prescribed, though not more than every four (4) hours, in anticipation of the nerve block wearing off. You may experience the inability to move your shoulder and hand, numbness, and swelling may feel different. If you experience severe or prolonged shortness of breath, please go to the emergency room. Pain Management After surgery: Do not wait until you are in a lot of pain before taking your prescribed pain medication. It takes 30-45 minutes for the medication to take effect. Pain tends to be worse at night, affecting sleep. Lying down may increase discomfort. Try sleeping in a recliner, or propped up with multiple pillows in bed - A pillow placed behind your elbow may help. Narcotic Medication Protocol: Strong oral narcotic pain medications are typically prescribed for the first few days after surgery. Use only as directed. Common side effects include nausea, dizziness, urinary retention, and constipation. If any of these are occurring to an uncomfortable level, decrease the amount of pain medication you are taking or stop taking it entirely. A stool softener may be helpful for constipation while taking pain medications. This is an acsk-paw-vbrintx product, such as Colace or Miralax. If you have an adverse reaction to the pain medication prescribed, please bring in your medicine bottle with you to your 1st appointment. Call our office at if you do not tolerate the medication well. Take your pain medication with food. Do not combine with alcoholic beverages. Do not operate machinery or a vehicle while taking pain medications. Other Medications Do not take Tylenol (Acetaminophen) in combination with pain medications that include these same substances. You may find the contents of the pain medication on the bottle of your prescription. You may take anti-inflammatory medication (Motrin [Ibuprofen], Aleve [Naproxen], Celebrex, Aspirin, etc) in conjunction with your pain medication if you can tolerate these medications. After the surgery, you may resume your normal medications that you took prior to surgery. WHAT YOU CAN EXPECT IN THE FIRST MONTH Physical Therapy - this will be addressed at your first post-operative appointment. The type of procedure you have determines when you will start Physical Therapy and is managed on a llpe-pt-dcnt basis. Rotator cuff repairs, shoulder stabilizations, and clavicular procedures: Therapy starts approx. 6 weeks after surgery. Other procedures: Therapy starts immediately after surgery. You should call your insurance company and therapy location ahead of time to learn allotted number of visits, financial expenses, and out of pocket costs. We are happy to provide you with a list of [place] locations. Driving - this will be addressed at your first post-operative appointment, however, in general: 1. You must be completely off your pain medication. 2. You must be able to perform the necessary functions comfortably and confidently. This may take 1 month or longer. Working - this will be addressed at your first appointment - Restrictions are job related and can vary from 2-10 weeks. No Repair during Surgery Sitting Desk Job - 1-2 Weeks Standing Job - 2-4 Weeks High Demand Job - 6-8 Weeks Repair during Surgery Sitting Desk Job - 2-3 Weeks Standing Job - 3-6 Weeks High Demand Job - 2-4 Months AFTER THE 1ST MONTH AT HOME Because each person heals differently, there are different recovery timelines. An average recovery period typically lasts about three (3) to six (6) months. You should not participate in contact sports or do heavy lifting until released by your physician. *Any questions or concerns regarding your surgery, you may contact our office at . Option #3 *Please allow for 24-48 hours to receive a return phone call* If the case of an emergency, please call 911 or go to the closest Emergency Department - Diet and Activity Activity: as per physical therapy Diet: advance to your usual diet
[2018-09-22 08:38] LABS: Basophils % 0.4 %; Hematocrit 25.2 % (35.3-44.9); Hemoglobin 8.2 g/dL (11.5-15.4); Immature Granulocytes % 0.4 % (0-4); Lymphocytes # 1.6 K/mcL (0.6-4.6); Lymphocytes % 28.4 %; Mean Corpuscular HGB Conc 32.5 g/dL (31.6-35.5); Mean Corpuscular Hemoglobin 33.2 pg (28.0-33.3); Mean Platelet Volume 11.5 fL (9.4-12.4); Monocytes # 0.5 K/mcL (0.0-1.3); Monocytes % 9.5 %; Neutrophils # 3.5 K/mcL (1.6-8.9); Platelet Count 105 K/mcL (140-400); Red Blood Count 2.47 M/mcL (3.82-4.97); Red Cell Distribution Width 16.3 % (11.5-14.5); Segmented Neutrophils % 61.3 %
[2018-09-22 08:57] LABS: BUN/Creatinine Ratio 27 (6-26); Blood Urea Nitrogen 8 mg/dL (6-20); Carbon Dioxide 26 mEq/L (23-29); Chloride 105 mEq/L (98-107); Glucose 135 mg/dL (70-105); Osmolality,Calculated 284 (280-300); Potassium 3.9 mEq/L (3.5-5.1); Sodium 137 mEq/L (136-145); eGFR For Non-African Americans > 60 (> 60)
[2018-09-22] MEDS ORDERED: 0.9 % Sodium Chloride 500 ML ONE (16:24)
[2018-09-22] MEDS: *HR* Promethazine 25 MG/ML VIAL IVP PRN (16:59)
[2018-09-22] MEDS: Mirtazapine 15 MG TABLET PO SCH (20:19)
[2018-09-22 22:41] LABS: Hematocrit 29.2 % (35.3-44.9); Hemoglobin 9.6 g/dL (11.5-15.4)
[2018-09-23] MEDS: diazePAM 5 MG TABLET PO PRN (01:52)
[2018-09-23] MEDS: Folic Acid 1 MG TABLET PO SCH (07:39)
[2018-09-23] MEDS: Magnesium Oxide 400 MG TABLET PO SCH (07:39)
[2018-09-23] MEDS: FLUoxetine 20 MG CAPSULE PO SCH (07:39)
[2018-09-23] MEDS: Sennosides 8.6 MG TABLET PO SCH (07:40)
--- NOTE | 2018-09-23 08:37 | Orthopedics Progress Note ---
Date of Encounter: 09/23/18 Time of Encounter: 08:35 Subjective Principal diagnosis: status post lumbar fusion Interval history: S: The patient was sitting up in a chair and is comfortable. Pain controlled to the lumbar region. O: Afebrile on the vital signs are stable Dressing is clean, dry, and intact Neurovascularly intact distally X-rays show good position of the hardware A: Lumbar interbody fusion, doing well P: Resume postoperative treatment. Okay to discharge today. Patient refusing ECF Will set up home with home health Objective Vital signs: Vital Signs Temp Pulse Resp BP Pulse Ox 09/23/18 07:04 98.1 F 63 18 124/79 96 09/23/18 01:53 67 121/78 09/22/18 22:25 98.0 F 77 17 99/64 96 09/22/18 20:38 96 09/22/18 20:24 98.6 F 88 16 104/63 96 09/22/18 19:52 98.2 F 84 17 109/70 97 09/22/18 16:50 98 F 87 16 123/81 09/22/18 16:42 97.9 F 79 16 114/70 98 09/22/18 14:51 97.8 F 75 14 111/71 98 09/22/18 12:14 97.6 F 67 14 134/80 99 Intake and Output 09/22/18 09/23/18 09/23/18 23:59 07:59 15:59 Intake Total 120 / 1960 Output Total 400 / 900 200 / 200 Balance -280 / 1060 -200 / -200 Intake: Oral 120 / 560 Blood Product 0 / 0 Rbcs Leuko Poor As-1 Unit 0 / 0 [id number] Output: Urine 400 / 900 200 / 200 Other: Meal Dinner Percent of Meal Consumed 25% # Voids 1 - Labs CBC & BMP: 09/22/18 22:07 09/22/18 08:28 Labs: Abnormal lab results RBC 2.47 M/mcL (3.82-4.97) L 09/22/18 08:28 Hgb 9.6 g/dL (11.5-15.4) L 09/22/18 22:07 Hct 29.2 % (35.3-44.9) L 09/22/18 22:07 MCV 102.0 fL (83.0-100.0) H 09/22/18 08:28 RDW 16.3 % (11.5-14.5) H 09/22/18 08:28 Plt Count 105 K/mcL (140-400) L 09/22/18 08:28 Potassium 3.2 mEq/L (3.5-5.1) L 09/21/18 16:59 0.30 mg/dL (0.60-1.20) L 09/22/18 08:28 27 (6-26) H 09/22/18 08:28 Glucose 135 mg/dL (70-105) H 09/22/18 08:28 Calcium 8.0 mg/dL (8.6-10.3) L 09/22/18 08:28 5.7 g/dL (6.4-8.9) L 09/21/18 16:59 3.2 g/dL (3.5-5.7) L 09/21/18 16:59 Crossmatch See Detail 09/22/18 Unknown Consult Discharge Plan - Plan Additional Instructions: INCORRECT DOCUMENT FOR THIS PATIENT - SCRIPTS SHREDDED - ENTERED IN ERROR AFTER SURGERY General Expectations: Swelling and discomfort in the shoulder for up to a week after surgery is typical A post-operative appointment will be set up with your provider within the 1st week of your surgery. Stitches will be removed within one (1) week of your surgery. You may need help with your daily activities, so it is a good idea to have family and friends prepared to help you. Eat a regular diet. Although some people feel much better right away, many people notice they are not back to normal for 4 weeks or more. The shoulder is stiff and sore for several weeks. Rest after your surgery. You may feel dizzy, lightheaded or sleepy for 12 to 24 hours after your operation. This is perfectly normal. Move slowly, and be especially careful on stairs. On the following day you can do those activities that you feel able to do. Wound Care: Expect minimal bloody drainage on the surgical bandages. Keep bandages clean and dry. You may remove outer bandages after 24 hours. Keep Steri-strips over the incisions. Keep them as dry as possible, and pat dry after showering. If Steri-strips come off, cover incisions with band-aids and do not use antibiotic creams You may shower 24 hours after surgery. Do not scrub the incisions or submerge them under water for at least two weeks. Sling Use: Duration of sling use will vary depending on the procedure and surgery type. You may be in the sling for up to six (6) weeks. Until you see your provider at the follow-up appointment, wear the sling at all times except when changing clothes, showering, Physical Therapy, or if advised by your Physician. Feel free to adjust the sling at home to feel snug but not tight. You should be able to breathe freely. There will also be a strap over your shoulder you may adjust to keep your arm at a 90 degree angle. You do not want your hand hanging down towards the ground. This encourages swelling in the hand. Your sling will be re-adjusted at your first post-operative appointment. Icing is most important in the first 72 hours after surgery: Apply ice bags or use the Cryocuff device you will be given at the time of surgery. Never apply ice directly contact to your skin. You will be given a Cryocuff device at the time of surgery. Please be sure all the pieces are with you or in the package before leaving the hospital. Anesthesia - General and Regional General Anesthesia - It is not uncommon to have generalized aching and muscle soreness for 24 to 48 hours. A sore throat may also occur. Regional Interscalene Nerve Block - Your Anesthesiologist will discuss the util ization of this nerve block with you prior to surgery. This is performed to limit post-operative pain - you should experience little to no pain right after surgery. Nerve blocks can last 12 to 48 hours after the surgery. After the surgery, start to take your pain medication as prescribed, though not more than every four (4) hours, in anticipation of the nerve block wearing off. You may experience the inability to move your shoulder and hand, numbness, and swelling may feel different. If you experience severe or prolonged shortness of breath, please go to the emergency room. Pain Management After surgery: Do not wait until you are in a lot of pain before taking your prescribed pain medication. It takes 30-45 minutes for the medication to take effect. Pain tends to be worse at night, affecting sleep. Lying down may increase discomfort. Try sleeping in a recliner, or propped up with multiple pillows in bed - A pillow placed behind your elbow may help. Narcotic Medication Protocol: Strong oral narcotic pain medications are typically prescribed for the first few days after surgery. Use only as directed. Common side effects include nausea, dizziness, urinary retention, and constipation. If any of these are occurring to an uncomfortable level, decrease the amount of pain medication you are taking or stop taking it entirely. A stool softener may be helpful for constipation while taking pain medications. This is an hrjn-ohq-osspjri product, such as Colace or Miralax. If you have an adverse reaction to the pain medication prescribed, please bring in your medicine bottle with you to your 1st appointment. Call our office at if you do not tolerate the medication well. Take your pain medication with food. Do not combine with alcoholic beverages. Do not operate machinery or a vehicle while taking pain medications. Other Medications Do not take Tylenol (Acetaminophen) in combination with pain medications that include these same substances. You may find the contents of the pain medication on the bottle of your prescription. You may take anti-inflammatory medication (Motrin [Ibuprofen], Aleve [Naproxen], Celebrex, Aspirin, etc) in conjunction with your pain medication if you can tolerate these medications. After the surgery, you may resume your normal medications that you took prior to surgery. WHAT YOU CAN EXPECT IN THE FIRST MONTH Physical Therapy - this will be addressed at your first post-operative appointment. The type of procedure you have determines when you will start Physical Therapy and is managed on a myqa-he-kjhc basis. Rotator cuff repairs, shoulder stabilizations, and clavicular procedures: Therapy starts approx. 6 weeks after surgery. Other procedures: Therapy starts immediately after surgery. You should call your insurance company and therapy location ahead of time to learn allotted number of visits, financial expenses, and out of pocket costs. We are happy to provide you with a list of [place] locations. Driving - this will be addressed at your first post-operative appointment, however, in general: 1. You must be completely off your pain medication. 2. You must be able to perform the necessary functions comfortably and confidently. This may take 1 month or longer. Working - this will be addressed at your first appointment - Restrictions are job related and can vary from 2-10 weeks. No Repair during Surgery Sitting Desk Job - 1-2 Weeks Standing Job - 2-4 Weeks High Demand Job - 6-8 Weeks Repair during Surgery Sitting Desk Job - 2-3 Weeks Standing Job - 3-6 Weeks High [employer]and Job - 2-4 Months AFTER THE 1ST MONTH AT HOME Because each person heals differently, there are different recovery timelines. An average recovery period typically lasts about three (3) to six (6) months. You should not participate in contact sports or do heavy lifting until released by your physician. *Any questions or concerns regarding your surgery, you may contact our office at . Option #3 *Please allow for 24-48 hours to receive a return phone call* If the case of an emergency, please call 911 or go to the closest Emergency Department Referrals: Juan Calixto DO [Primary Care Provider] - Prescriptions: Docusate Sodium [Colace] 100 mg PO BID 5 Days #10 capsule OxyCODONE Immed Rel [Roxicodone 5 MG] 5 mg PO Q6HR PRN 5 Days #20 tablet PRN Reason: Severe Pain diazePAM [Valium] 5 mg PO TID PRN 7 Days #21 tablet PRN Reason: Spasms
[2018-09-23 11:11] VITALS: BP 109/65
[2018-09-23] MEDS: *HR* OxyCODONE Immed Rel 5 MG TABLET PO PRN (12:18)
== END 2018-09-23 13:38 | disposition home health service (06) | DRG 454 ==
LOC: SAMDAY 06:15 → 3NENU 12:11
PROVIDERS: ADMIT Orthopaedic Surgery Orthopaedic Surgery of the Spine; ATTEND Orthopaedic Surgery Orthopaedic Surgery of the Spine